=== PATIENT | female | born 1990 | race Caucasian/White ===

== ENCOUNTER 2017-01-12 10:26 | Emergency (ER) | payer MEDICAID ==
[2010-07-08 23:55] VITALS: BMI 27.2
[~2017-01-12 10:26] MED LIST: FERROUS SULFAT325 MG PO; MOTRIN600 MG; PERCOCET 10/3251 TA1 PO; VITAFOL-OB CA1 UDTAB
== END 2017-01-12 11:32 | disposition home or self-care (01) ==
LOC: D.ER 10:26
DX: S16.1XXA Strain of muscle, fascia and tendon at neck level, initial encounter (principal); X50.0XXA Overexertion from strenuous movement or load, initial encounter; Y93.89 Activity, other specified; Y92.019 Unspecified place in single-family (private) house as the place of occurrence of the external cause; S29.012A Strain of muscle and tendon of back wall of thorax, initial encounter

== ENCOUNTER 2017-03-18 22:25 | Emergency (ER) | payer MEDICAID ==
[2010-07-08 23:55] VITALS: BMI 27.2
== END 2017-03-19 00:10 | disposition home or self-care (01) ==
LOC: D.ER 22:25
DX: L03.012 Cellulitis of left finger (principal); F17.200 Nicotine dependence, unspecified, uncomplicated